=== PATIENT | female | born 1970 | race Caucasian/White ===

== ENCOUNTER 2023-11-08 13:15 | Emergency (ER) | payer MEDICARE, MEDICAID, SELFPAY ==
[2023-11-08 13:22] VITALS: BP 167/74; PULSE 120; RESP 18; TEMP 36.8; O2SAT 96; BMI 27.4
--- NOTE | 2023-11-08 13:23 | ED_ITS ---
HPI - Psych General Chief Complaint: Psychiatric Symptoms Stated Complaint: crisis Time Seen by Provider: 11/08/23 13:27 Source: patient Mode of arrival: ambulatory Limitations: no limitations History of Present Illness HPI Narrative: 53 yo female with PMH of anxiety here stating she is anxious - she provides no other information to me she states she has no SI/HI. NO AH/HV, no substance abuse. She cannot tell me what it is about her anxiety that brought her here or why she came to talk to someone. She keeps just saying anxiety MD complaint: anxiety Onset (ago): week(s) Duration: getting worse History of same: Yes Relieving factors: none Exacerbating factors: none Associated psychiatric symptoms: none Associated symptoms: denies other symptoms Treatments prior to arrival: none Related Data Allergies Allergy/AdvReac Type Severity Reaction Status Date / Time Penicillins AdvReac Unknown Verified 11/08/23 13:23 Review of Systems 2 Review of Systems: Constitutional : No Fever, No Chills ENT/Mouth : No Ear Pain, No Nasal Congestion, No sore throat Eyes: No Eye Pain, No Swelling, No Redness Cardiovascular : No Chest Pain, No SOB Respiratory : No Cough, No Sputum, No Dyspnea Gastrointestinal : No Nausea, No Vomiting, No Diarrhea, No Hematochezia, No Melena Genitourinary : No Dysuria, No Urinary Frequency, No Hematuria Musculoskeletal : No Myalgias Skin : No Skin Lesions, No rash Neuro : No Weakness, No Numbness, No Paresthesias, No Dizziness, No Headache Psych : positive Anxiety, no Depression, no SI/HI Heme/Lymph: No Lymphadenopathy Endocrine : No Polyuria, No Polydipsia All other systems reviewed and are negative [facility] Past Medical History Attestation statement: The following information was validated with the patient. Source: old records reviewed Medical History Anxiety Social History Social History Smoked in Last 30 Days: Yes Use of substances other than those prescribed or required for medical reasons: Yes Substance Use Type: Marijuana Substance Use Frequency: Weekly Advance Directives: No Advance Directives Information Provided: No Physical Exam 2 Vital Signs: Vital Signs: Last Vital Signs Temp 98.3 F 11/08/23 13:22 Pulse 120 H 11/08/23 13:22 Resp 18 11/08/23 13:22 BP 167/74 H 11/08/23 13:22 Pulse Ox 96 11/08/23 13:22 O2 Del Method Room Air 11/08/23 13:22 BMI result Body Mass Index 27.4 Appearance: Alert. Oriented X3. No acute distress. Flat affect Eyes: Pupils equal, round and reactive to light. ENT: Pharynx normal. Neck: Normal inspection. Neck supple. CVS: Normal heart rate and rhythm. Pulses normal. Respiratory: No respiratory distress. Breath sounds normal. Abdomen: Soft and nontender. Skin: Skin warm and dry. Normal skin color. Normal skin turgor. Extremities: No lower extremity edema. No calf ttp Neuro: Oriented X 3. No motor deficit. No sensory deficit. CN2-12 intact Course Course Course Narrative: This is a rapid medical exam. Deferred additional HPI, ROS, PE to primary provider. 53 yo female with history of PTSD, anxiety, previous head injury here with complaints of increasing stress, no SI/HI. Has been taking her home medications. She does have a therapist and prescribing physician. Denies substance use. Looking to speak to crisis Tachycardic in triage. Asymptomatic. Will obtain EKG, labs, drug screen Medical Decision Making Medical Decision Making MDM Narrative: 53 yo female with PMH of anxiety here with reported anxiety but she will not tell me how it is affecting her such as SI/HI/AH/VH or if she is not able to eat or sleep. She just keeps saying anxiety. She denies drug use. At this time labs and CARE team consult ordered. She is not forthcoming states she is safe at home but I cannot figure out why she came in for emergent psychiatric needs. Differential Diagnosis Differential Diagnoses: The differential diagnosis associated with the presentation includes anxiety, medication issues Admission/Observation Consideration of admission/observation: Escalation of care including admission/observation considered physician observation started at 3pm pending CARE team input Consult Healthcare Provider Management of the patient was discussed with: Behavioral Health Provider Lab Data [facility] Lab Attestation statement: I reviewed the patient's lab results. 11/08/23 13:46 11/08/23 13:46 Labs: Lab Results 11/08/23 Range/Units 13:46 WBC 6.9 (4.8-10.8) X10*3/uL RBC 5.18 (4.20-5.50) X10*6/uL Hgb 15.8 (12.0-16.0) g/dl Hct 46.3 (37.0-47.0) % MCV 89.4 (80.0-98.0) fL MCH 30.5 (27.0-33.0) pg MCHC 34.1 (31.0-35.0) g/dl RDW 13.2 (11.0-16.0) % Plt Count 230 (160-400) X10*3/uL MPV 12.0 (9.4-12.3) fL Immature Gran % (Auto) 0.3 (0.0-0.4) % Neut % (Auto) 70.9 (45-73) % Lymph % (Auto) 22.8 (20-40) % [place] % (Auto) 5.3 (2-11) % Eos % (Auto) 0.3 (0-4) % Baso % (Auto) 0.4 (0-2) % Lymph # (Auto) 1.6 (1.2-4.9) X10*3/uL [place] # (Auto) 0.4 (0.1-1.2) X10*3/uL Eos # (Auto) 0.0 (0.0-0.4) X10*3/uL Baso # (Auto) 0.0 (0.0-0.2) X10*3/uL Abs Immat Gran (auto) 0.02 (0.00-0.03) X10*3/uL Absolute Neuts (auto) 4.9 (2.0-8.3) x10*3/uL Absolute Nucleated RBC 0.000 (0.0-0.012) X10*3/uL Nucleated RBC % (auto) 0.0 (0.0-0.2) /100WBC Smear Tech's Comments VERIFIED Sodium 135 (135-145) mmol/L Potassium 3.6 (3.3-5.1) mmol/L Chloride 99 (96-108) mmol/L Carbon Dioxide 23 (22-29) mmol/L Anion Gap 17 (12-20) BUN 10 (9-16) mg/dL Creatinine 0.59 (0.5-1.4) mg/dL Estim Creat Clear Calc 113.0 Estimated GFR > 60 Random Glucose 126 H (60-115) mg/dL Calcium 10.3 H (8.4-10.2) mg/dL Total Bilirubin 1.2 H (0.0-1.0) mg/dL Direct Bilirubin 0.4 (0.0-0.5) mg/dL AST 18 (5-31) U/L ALT 23 (0-31) U/L Alkaline Phosphatase 211 H (39-117) U/L Total Protein 7.3 (6.5-8.0) g/dL Albumin 4.2 (3.5-5.0) g/dL Ethyl Alcohol < 10 mg/dL Independent Interpretation I performed an independent interpretation of an: EKG Interpretation: Rate: 110 Rhythm: sinus tachycardia [place]: left Normal P waves. Normal JON. incomplete RBBB ST T wave : no KRISTINA, flat t waves aVLF, no KRISTINA qTC: 438 prior studies: no prior The study has been interpreted contemporaneously by me. . Discharge Plan Discharge Clinical Impression: Acute anxiety Patient Disposition: Still a Patient Interventions: [place]-Suicide Risk Severity Scale Last Done: 11/08/23 13:39 Print Language: Kazakh
--- NOTE | 2023-11-08 13:26 | ECG_ITS ---
Test Reason : CHECK QT INTERVAL Blood Pressure : / mmHG Vent. Rate : 110 BPM Atrial Rate : 110 BPM P-R Int : 128 ms QRS Dur : 100 ms QT Int : 324 ms P-R-T Axes : 081 -17 052 degrees QTc Int : 438 ms Sinus tachycardia Biatrial enlargement Incomplete right bundle branch block Septal infarct , age undetermined Abnormal ECG No previous ECGs available Referred By: Gina Lazar Electronically Signed By:HARSH ROSEN MD
[2023-11-08 13:59] LABS: Basophils Percent Auto 0.4 % (0-2); Eosinophils Percent Auto 0.3 % (0-4); Hematocrit 46.3 % (37.0-47.0); Hemoglobin 15.8 g/dl (12.0-16.0); Imm Gran Abs Auto 0.02 X10*3/uL (0.00-0.03); Imm Gran Pct Auto 0.3 % (0.0-0.4); Lymphocytes Absolute Auto 1.6 X10*3/uL (1.2-4.9); Lymphocytes Percent Auto 22.8 % (20-40); MANUAL DIFF FLAG SCAN; Mean Corpuscular HGB Conc 34.1 g/dl (31.0-35.0); Mean Corpuscular Hemoglobin 30.5 pg (27.0-33.0); Mean Corpuscular Volume 89.4 fL (80.0-98.0); Monocytes Absolute Auto 0.4 X10*3/uL (0.1-1.2); Monocytes Percent Auto 5.3 % (2-11); Neutrophils Absolute Auto 4.9 x10*3/uL (2.0-8.3); Neutrophils Percent Auto 70.9 % (45-73); PLT CLUMP 1; Red Blood Count 5.18 X10*6/uL (4.20-5.50); Red Cell Distribution Width 13.2 % (11.0-16.0); SCAN SMEAR FLAG 1
[2023-11-08 14:08] LABS: Ethanol < 10 mg/dL
[2023-11-08 14:11] LABS: Alanine Aminotransferase 23 U/L (0-31); Albumin Level 4.2 g/dL (3.5-5.0); Alkaline Phosphatase 211 U/L (39-117); Anion Gap 17 (12-20); Aspartate Amino Transferase 18 U/L (5-31); Bilirubin Direct 0.4 mg/dL (0.0-0.5); Bilirubin Total 1.2 mg/dL (0.0-1.0); Blood Urea Nitrogen 10 mg/dL (9-16); Calcium 10.3 mg/dL (8.4-10.2); Carbon Dioxide 23 mmol/L (22-29); Chloride 99 mmol/L (96-108); Estimated Glomerular Filt Rate > 60; Glucose Random 126 mg/dL (60-115); Potassium 3.6 mmol/L (3.3-5.1); Sodium 135 mmol/L (135-145); Total Protein 7.3 g/dL (6.5-8.0)
[2023-11-08 14:29] LABS: Platelet Count 230 X10*3/uL (160-400); SLIDE REVIEW VERIFIED; White Blood Count 6.9 X10*3/uL (4.8-10.8)
[2023-11-08 14:53] LABS: Influenza A PCR NEGATIVE (Negative); Influenza B PCR NEGATIVE (Negative); Resp Syncy Virus RNA Qual PCR NEGATIVE (Negative); SARS COV2 PCR INHOUSE NEGATIVE (Negative)
[2023-11-08 18:18] VITALS: BP 153/63; PULSE 134; RESP 18; TEMP 36.8; O2SAT 95
--- NOTE | 2023-11-08 19:13 | PC.NURSE ---
patient appears to remain at rest patient informed regarding ativan and patient seemed reluctant, will reapproach in minutes.
[2023-11-08 22:35] VITALS: BP 153/82; PULSE 134; RESP 20; TEMP 36.8; O2SAT 96
[2023-11-09] VITALS (7 sets, daily range): BP systolic 106–173; BP diastolic 72–82; PULSE 89–128; RESP 15–20; TEMP 36.1–37.1; O2SAT 95–98
--- NOTE | 2023-11-09 02:11 | PC.NURSE ---
t/w checked in with client and offered tv, drinks and snacks client declined.
--- NOTE | 2023-11-09 05:10 | PC.NURSE ---
T/W was notified by Kamila RN of pts persistent tachycardia since she arrived @ 1300 yesterday. MD Cano was notified by Kamila of tachycardia. T/W discussing care plan with MD Candelaria as pt remains tachycardic. Plan for further lab work and MORRIS at this time. Primary RN notified.
[2023-11-09 05:25] LABS: Appearance Urine Clear; Color Urine Yellow; Glucose Urine UA Negative (Negative); Leukocyte Esterase Urine Negative (Negative); Nitrite Urine Negative (Negative); PH 5.5 (5.0-9.0); Specific Gravity - Urine 1.015 (1.005-1.025); Urine Blood Negative (Negative); Urine Ketones 80 mg/dL (Negative); Urine Protein Trace mg/dL (Neg-Trace)
[2023-11-09 05:30] LABS: Bacteria Urine Trace (None Seen); Hyaline Casts Urine 0-2 /LPF (0-2); RBC Urine 0-2 /HPF (0-2); WBC Urine 0-5 /HPF (0-5)
[2023-11-09 05:37] LABS: Amphetamine Screen Urine Not Detected (Not Detect); Barbiturates, Urine Not Detected (Not Detect); Benzodiazepines Screen Urine Not Detected (Not Detect); Buprenorphine Scr Not Detected (Not Detect); Cannabinoid Screen Urine POSITIVE (Not Detect); Cocaine Screen Urine Not Detected (Not Detect); Fentanyl, urine Not Detected (Not Detect); Methadone Screen, Urine Not Detected (Not Detect); Opiate Screen Urine Not Detected (Not Detect); Oxycodone Screen Urine Not Detected (Not Detect); Phencyclidine Screen Urine Not Detected (Not Detect)
--- NOTE | 2023-11-09 05:46 | MHC.EDTECH ---
Addendum entered by Marizol Landry 11/09/23 06:44: pod clothes and linen NOT changed over. pt refused during process. clean linen left in room for pt. Original Note: t/w and RN assisted PT from bathroom to pt room as they would not move from the toilet seat. PT frustrated with being moved stating Xavier is here, I can here him, He's right there. Pt redirected back to pt original room where linen and pod clothes were changed. pt refusing to give repeat lab work sample. t/w attempted but when tourniquet was b put on pt pulled arm away and once again stated Xavier said I can't do that, he's right there, look! RN AWARE.
--- NOTE | 2023-11-09 06:11 | MHC.EDTECH ---
t/w attempted to obtain labs for a second time, pt stated iván is supposed to come rescue me. YOU ARENT IVÁN. t/w asked again if it was okay to obtain labwork where pt gave no other answer and stared at the wall repeating the word Iván . RN AWARE.
--- NOTE | 2023-11-09 06:32 | PC.NURSE ---
t/w attemtped to give clonidine to help w bp, pulse, wd sx, patient appeared too internally preoccupied to comply.
[2023-11-09 06:48] LABS: Acetaminophen LAB < 3 mcg/mL (<30); Salicylate < 5.0 mg/dL (15-30); Troponin-I High Sensitivity 3.6 ng/L (<3.5-17.0)
[2023-11-09] MEDS: OLANZapine ODT 10 MG TAB.RAPDIS TRANSLINGU (08:29)
[2023-11-09] MEDS: LORazepam 1 MG TABLET 2 MG PO (08:29)
--- NOTE | 2023-11-09 08:35 | PC.NURSE ---
pt repeatedly screaming for somebody to help her, staff has repeatedly entered her room and offered assistance, pt appears paranoid, curled up in the corner of the room/bed and [facility] and that I know what she needs help with. prn med offered and accepted by pt and she took 2mg ativan and 10mg zyprexa
[2023-11-09] MEDS: HaloperidoL 5 MG TABLET PO (09:42)
--- NOTE | 2023-11-09 09:51 | PC.NURSE ---
Nursing Observation At this time the patient presents with symptoms of psychosis. The patient believes multiple staff members are someone else named Cooper . The patient also repeatedly yells for someone named Joe and tells this unseen other to keep moving . The patient is talking over staff and repeatedly states that she does not believe what the staff is saying and goes on to call the staff member Cooper . Haldol 5mg PO was offered and was administered at 0942. The patient remains anxious, guarded and paranoid at this time. Will continue with the plan of care.
--- NOTE | 2023-11-09 11:48 | PC.NURSE ---
pt starting to calm, laying in bed, vs now Hao kent from Care team spoke with PCP and pt has recent diagnosis of Graves disease and thyroid levels were very high, pcp also reports that they spoke with the pt yesterday and was normal when she spoke with her
[2023-11-09 12:40] LABS: TSH reflex Free T4 < 0.01 uIU/mL (0.32-4.0)
[2023-11-09 13:56] LABS: Free T4 (Free Thyroxine) 3.63 ng/dL (0.71-1.85)
--- NOTE | 2023-11-09 14:41 | PC.NURSE ---
RN's made multiple attempts to have patient change gown and pants. Patient has refused to change out of soiled gown and pants. At this time the patient continues to refuse to change into a clean gown and pants. Will continue with plan of care.
[2023-11-09] MEDS: Hydrocortisone Sod Succ/PF 100 MG VIAL IVPUSH (15:19)
--- NOTE | 2023-11-09 15:22 | PC.NURSE ---
called pharmacy for missing meds
[2023-11-09] MEDS: methIMAzole 10 MG TABLET 20 MG PO (15:27)
[2023-11-09] MEDS: Propranolol HCL 10 MG TABLET PO (15:27)
--- NOTE | 2023-11-09 15:33 | PC.NURSE ---
pt brought over to room 3 with 1:1 sitter from pod, patient a&o but sleepy, iv inserted, personnel monitor applied- sinus tach on monitor, vitals otherwise stable- pt medicated per order, and to transfer to another facility-arrangements being made, call morales within reach of sitter, pt given po per request, will continue to monitor
[2023-11-10 10:52] LABS: Triiodothyronine T3 Total 366 ng/dL (76-181)
== END 2023-11-09 16:22 | disposition short-term general hospital (02) ==
PROVIDERS: Nurse Practitioner Family; Student in an Organized Health Care Education/Training Program; Emergency Provider Emergency Medicine; PCP Family Medicine
DX: F41.9 Anxiety disorder, unspecified (principal); E04.9 Nontoxic goiter, unspecified; E05.00 Thyrotoxicosis with diffuse goiter without thyrotoxic crisis or storm; Z11.52 Encounter for screening for COVID-19
CPT/HCPCS: 0241U; 36415; 80048; 80076; 80143; 80179; 80307; 81001; 84439; 84443; 84480; 84484; 85025; 93005; 96374; 99285; J1720; S9485

== ENCOUNTER → 2023-11-08 13:26 | Outpatient (BNV) | payer MEDICARE, MEDICAID, SELFPAY | PROVIDERS: Emergency Provider Emergency Medicine; PCP Family Medicine; Visit Provider Internal Medicine Cardiovascular Disease | DX: R94.31 Abnormal electrocardiogram [ECG] [EKG] (principal) | CPT/HCPCS: 93010 ==